=== PATIENT | female | born 1945 | race Caucasian/White ===

== ENCOUNTER → 2016-04-30 | Outpatient (CLI) | payer MEDICARE, BC ==
[~2016-04-30] MED LIST: AMANTADINE100 MG PO; AMOXICILLIN 8751 TAB PO; BUDEPRION XL300 MG PO; CARBIDOPA & LEV1 TA1 PO; CEPHALEXIN250 M1 PO; CEPHALEXIN500 M1 PO; CETAPHIL1 CRE; CITRACAL + D 251 TAB; FISH OIL CONCEN1 SG2 PO; FLAXSEED OIL1 CAP; FUROCOT20 MG PO; GENTAMICIN TOPI15 GM TP; ICAPS AREDS1 TAB; LASIX 20MG TABL20 MG PO; LEVADOPA; LEVOTHYROXIN0.075 MG PO; LIDO35.4 TOP; MACROBID 1100 MG/CAP PO; MIRAPEX 0.125MG PO; MIRAPEX1.5 MG PO; NEURONTIN100 MG/CAP PO; NEURONTIN300 MG/CAP PO; NORCO 325 MG-7.1 TAB PO; PERCOCET 5/321 UDTAB PO; PREDNISONE20 MG PO; PROVIGIL; PROVIGIL200 MG PO; RYTARY1 CE2 PO; SINEMET 25/101 UDTAB PO; SYMMETREL100 M1 PO; SYNTHROID0.075 MG/T PO; SYSTANE 0.3-0.1 EACH OP; THERATEARS 0.60.6 ML; TOPICORT CREAM15 GM; ULTRACET TABL1 UDTAB PO; WELLBUTRIN XL300 M1 PO; WELLBUTRIN XL300 MG PO; [UNRECOGNIZED DRUG - CODE] TOP; [UNRECOGNIZED DRUG - OTHER]; [UNRECOGNIZED DRUG - OTHER]; prestiq
== END ==
LOC: MC.RAD 13:20
DX: Z12.31 Encounter for screening mammogram for malignant neoplasm of breast (principal)

== ENCOUNTER 2016-05-21 13:21 | Emergency (ER) | payer MEDICARE, BC ==
[~2016-05-21] VITALS: Ht 152.4 cm; Wt 63.6 kg
[~2016-05-21 13:21] MED LIST changes: -AMOXICILLIN 8751 TAB PO; -GENTAMICIN TOPI15 GM TP; -LIDO35.4 TOP; -NEURONTIN300 MG/CAP PO; -NORCO 325 MG-7.1 TAB PO; -WELLBUTRIN XL300 M1 PO
[2016-05-21 13:25] VITALS: BP 147/74; PULSE 64; TEMP 98
[2016-05-21] MEDS ORDERED: RYTARY1 CE2 PO (14:05)
[2016-05-21] MEDS ORDERED: LASIX 20MG TABL20 MG PO (14:06)
[2016-05-21] MEDS ORDERED: MIRAPEX1.5 MG PO (14:06)
[2016-05-21] MEDS ORDERED: ULTRACET TABL1 UDTAB PO (14:08)
[2016-05-21] MEDS ORDERED: SYMMETREL100 M1 PO (14:09)
[2016-05-21] MEDS ORDERED: WELLBUTRIN XL300 M1 PO (14:09)
[2016-05-21] MEDS ORDERED: SYNTHROID0.075 MG/T PO (14:10)
== END 2016-05-21 14:51 | disposition home or self-care (01) ==
LOC: COL.ER 13:21
DX: S51.811A Laceration without foreign body of right forearm, initial encounter (principal); W22.03XA Walked into furniture, initial encounter; Y92.009 Unspecified place in unspecified non-institutional (private) residence as the place of occurrence of the external cause; G20 Parkinson's disease

== ENCOUNTER 2016-05-24 11:25 | Emergency (ER) | payer MEDICARE, BC ==
[~2016-05-24] VITALS: Ht 152.4 cm; Wt 63.2 kg
[~2016-05-24 11:25] MED LIST changes: +WELLBUTRIN XL300 M1 PO
[2016-05-24 11:33] VITALS: BP 135/63; PULSE 65; TEMP 98.1
[2016-05-24] MEDS ORDERED: CEPHALEXIN500 M1 PO (11:52)
== END 2016-05-24 12:02 | disposition home or self-care (01) ==
LOC: COL.ER 11:25
DX: S51.811D Laceration without foreign body of right forearm, subsequent encounter (principal); X58.XXXD Exposure to other specified factors, subsequent encounter

== ENCOUNTER 2016-07-28 12:05 | Emergency (ER) | payer MEDICARE, BC ==
[~2016-07-28] VITALS: Ht 152.4 cm; Wt 63.6 kg
[2016-07-28 12:07] VITALS: BP 165/55; PULSE 69; TEMP 97.4
[2016-07-28] MEDS ORDERED: CEPHALEXIN500 M1 PO ×2 (13:12)
[2016-07-28 13:26] LABS: BASO % 0.8 % (0.0-2.0); EOS # 0.6 (0.0-0.7); EOS % 10.5 % (0-4.0); GRAN % 57.2 % (42.2-75.2); HEMATOCRIT 36.1 % (37.0-47.0); HEMOGLOBIN 11.8 g/dl (12.5-16.0); LYMPH # 1.2 (1.2-3.4); LYMPH % 22.4 % (20.0-51.0); MEAN CELL VOLUME 92 fl (80.0-100.0); MEAN CORPUSCULAR HEMOGLOBIN 30 pg (27.0-31.0); MEAN CORPUSCULAR HGB CONC 33 g/dl (33.0-37.0); MEAN PLATELET VOLUME 9.1 fl (7.4-10.4); MONO # 0.5 (0.1-0.6); MONO % 8.7 % (1.7-9.3); PLATELET COUNT 299 K/mm3 (130-400); RED BLOOD COUNT 3.93 M/mm3 (4.10-5.30); REDCELL DISTRIBUTION WIDTH-CV 13.1 % (11.5-14.5); WHITE BLOOD COUNT 5.3 K/mm3 (4.8-10.8)
[2016-07-28 13:42] LABS: ADJUSTED CALCIUM 9.5 mg/dL (8.4-10.2); ALBUMIN 4.6 gm/dL (3.5-5.0); BILIRUBIN,TOTAL 0.8 mg/dL (0.0-1.0); C-REACTIVE PROTEIN 0.6 mg/dL (0.0-0.9); POTASSIUM 4.5 mmol/L (3.4-5.0); TOTAL PROTEIN 8.1 gm/dL (6.4-8.2)
== END 2016-07-28 13:32 | disposition home or self-care (01) ==
LOC: COL.ER 12:05
PROVIDERS: Physician Assistant
DX: S91.002A Unspecified open wound, left ankle, initial encounter (principal); S81.802A Unspecified open wound, left lower leg, initial encounter; V18.4XXA Pedal cycle driver injured in noncollision transport accident in traffic accident, initial encounter; Y92.009 Unspecified place in unspecified non-institutional (private) residence as the place of occurrence of the external cause; G20 Parkinson's disease; I87.2 Venous insufficiency (chronic) (peripheral)

== ENCOUNTER 2016-11-07 08:16 | Emergency (ER) | payer MEDICARE, BC ==
[~2016-11-07] VITALS: Ht 152.4 cm; Wt 63.6 kg
[2016-11-07 08:18] VITALS: BP 134/64; PULSE 64; TEMP 98.6
[2016-11-07] MEDS ORDERED: NEURONTIN300 MG/CAP PO (08:33)
[2016-11-07] MEDS ORDERED: GENTAMICIN TOPI15 GM TP (08:34)
[2016-11-07] MEDS ORDERED: LIDO35.4 TOP (08:34)
[2016-11-07] MEDS ORDERED: AMOXICILLIN 8751 TAB PO (08:43)
[2016-11-07] MEDS ORDERED: NORCO 325 MG-7.1 TAB PO ×2 (08:44→09:08)
== END 2016-11-07 09:22 | disposition home or self-care (01) ==
LOC: COL.ER 08:16
DX: L97.329 Non-pressure chronic ulcer of left ankle with unspecified severity (principal); G20 Parkinson's disease

== ENCOUNTER → 2016-12-28 | Outpatient (CLI) | payer MEDICARE, BC ==
[~2016-12-28] MED LIST changes: +AMOXICILLIN 8751 TAB PO; +GENTAMICIN TOPI15 GM TP; +LIDO35.4 TOP; +NEURONTIN300 MG/CAP PO; +NORCO 325 MG-7.1 TAB PO
== END ==
LOC: ZCOL.LAB 14:51
DX: L97.329 Non-pressure chronic ulcer of left ankle with unspecified severity (principal)

== ENCOUNTER → 2016-12-28 | Outpatient (CLI) | payer MEDICARE, BC | LOC: WCC 09:15 | DX: L97.821 Non-pressure chronic ulcer of other part of left lower leg limited to breakdown of skin (principal) | CPT/HCPCS: G0463 ==

== ENCOUNTER → 2017-01-04 | Outpatient (CLI) | payer MEDICARE, BC ==
[~2017-01-04] MED LIST changes: +ADVIL200 MG PO; +CALCIUM 600-D 61 TAB PO; +IRON TABLETS325 MG PO; +OCUVITE1 TA1 PO; +OMEGA-31 SGL PO; +PHARMASSURE ZIN50 MG PO; +VANCOCIN HCL1 GM IV; +VITAMIN C500 MG PO
== END ==
LOC: WCC 08:25
DX: I87.2 Venous insufficiency (chronic) (peripheral) (principal); M81.0 Age-related osteoporosis without current pathological fracture; L97.829 Non-pressure chronic ulcer of other part of left lower leg with unspecified severity
CPT/HCPCS: 21064; A6021

== ENCOUNTER → 2017-01-11 | Outpatient (CLI) | payer MEDICARE, BC | LOC: WCC 09:46 | DX: L97.829 Non-pressure chronic ulcer of other part of left lower leg with unspecified severity (principal); I87.2 Venous insufficiency (chronic) (peripheral) | CPT/HCPCS: G0463 ==

== ENCOUNTER → 2017-01-18 | Outpatient (CLI) | payer MEDICARE, BC | LOC: WCC 11:48 | DX: L97.829 Non-pressure chronic ulcer of other part of left lower leg with unspecified severity (principal); I87.2 Venous insufficiency (chronic) (peripheral) | CPT/HCPCS: G0463 ==

== ENCOUNTER → 2017-01-25 | Outpatient (CLI) | payer MEDICARE, BC | LOC: WCC 13:06 | DX: L97.829 Non-pressure chronic ulcer of other part of left lower leg with unspecified severity (principal); I87.2 Venous insufficiency (chronic) (peripheral) | CPT/HCPCS: G0463 ==

== ENCOUNTER → 2017-01-28 | Outpatient (CLI) | payer MEDICARE, BC | LOC: WCC 09:24 | DX: L97.829 Non-pressure chronic ulcer of other part of left lower leg with unspecified severity (principal); M79.672 Pain in left foot; G20 Parkinson's disease; E66.9 Obesity, unspecified | CPT/HCPCS: 27513; A6456; G0463 ==

== ENCOUNTER → 2017-02-03 | Outpatient (CLI) | payer MEDICARE, BC | LOC: WCC 14:26 | DX: L97.829 Non-pressure chronic ulcer of other part of left lower leg with unspecified severity (principal) | CPT/HCPCS: 27513; A6456 ==

== ENCOUNTER → 2017-02-05 | Outpatient (CLI) | payer MEDICARE, BC | LOC: ZCOL.LAB 15:39 | DX: B95.2 Enterococcus as the cause of diseases classified elsewhere (principal); L97.222 Non-pressure chronic ulcer of left calf with fat layer exposed ==

== ENCOUNTER 2017-02-09 10:00 | Outpatient (RCR) | payer MEDICARE, BC ==
[2017-01-08 11:39] VITALS: BP 149/63; PULSE 60; TEMP 97.5
[2017-01-09 08:40] VITALS: BP 134/46; PULSE 67; TEMP 97.7
[2017-01-10 07:39] VITALS: BP 137/55; PULSE 59; TEMP 98.1
[2017-01-11 09:59] VITALS: BP 145/84; PULSE 65; TEMP 98.4
[2017-01-12 08:01] VITALS: BP 148/60; PULSE 59; TEMP 98.4
[2017-01-13 07:49] VITALS: BP 146/59; PULSE 60; TEMP 98.3
[2017-01-14 07:41] VITALS: BP 159/57; PULSE 62; TEMP 97.5
[2017-01-15 08:00] VITALS: BP 126/53; PULSE 66; TEMP 97.8
[2017-01-16 07:25] VITALS: BP 147/83; PULSE 70; TEMP 98
[2017-01-16 07:55] LABS: BASO % 0.6 % (0.0-2.0); EOS # 0.2 (0.0-0.7); EOS % 3.3 % (0-4.0); GRAN # 4.3 (1.4-6.5); GRAN % 68.5 % (42.2-75.2); LYMPH # 1.2 (1.2-3.4); LYMPH % 18.6 % (20.0-51.0); MEAN CELL VOLUME 96 fl (80.0-100.0); MEAN CORPUSCULAR HGB CONC 33 g/dl (33.0-37.0); MEAN PLATELET VOLUME 9.3 fl (7.4-10.4); MONO # 0.5 (0.1-0.6); MONO % 8.4 % (1.7-9.3); PLATELET COUNT 303 K/mm3 (130-400); WHITE BLOOD COUNT 6.3 K/mm3 (4.8-10.8)
[2017-01-16 08:10] LABS: ADJUSTED CALCIUM 9.7 mg/dL (8.4-10.2); ALANINE AMINOTRANSFERASE 14 U/L (9-52); ALBUMIN 3.8 gm/dL (3.5-5.0); ALKALINE PHOSPHATASE 102 U/L (50-136); ANION GAP 8 mmol/L (7-16); BILIRUBIN,TOTAL 0.5 mg/dL (0.0-1.0); BLOOD UREA NITROGEN 29 mg/dL (7-17); CALCIUM 9.5 mg/dL (8.4-10.2); CARBON DIOXIDE 26 mmol/L (22-30); CHLORIDE 108 mmol/L (98-107); CREATININE, serum 0.83 mg/dL (0.52-1.25); GLUCOSE 93 mg/dL (74-106); POTASSIUM 4.3 mmol/L (3.4-5.0); SODIUM 142 mmol/L (137-145); TOTAL PROTEIN 7.1 gm/dL (6.4-8.2)
[2017-01-16 08:11] LABS: C-REACTIVE PROTEIN < 0.5 mg/dL (0.0-0.9); HEMATOCRIT 28.9 % (37.0-47.0); HEMOGLOBIN 9.4 g/dl (12.5-16.0); MEAN CORPUSCULAR HEMOGLOBIN 31 pg (27.0-31.0)
[2017-01-16 08:59] LABS: ERYTHROCYTE SEDIMENTATION RATE 61 mm/hr (0-30)
[2017-01-17 07:30] VITALS: BP 150/59; PULSE 64; TEMP 97.7
[2017-01-18 07:56] VITALS: BP 142/61; PULSE 66; TEMP 97.4
[2017-01-19 07:34] VITALS: BP 149/60; PULSE 64; TEMP 97.8
[2017-01-20 07:58] VITALS: BP 139/55; PULSE 64; TEMP 98.1
[2017-01-21 08:14] VITALS: BP 143/48; PULSE 63; TEMP 98.2
[2017-01-22 08:03] VITALS: BP 121/50; PULSE 69; TEMP 98
[2017-01-23 07:57] VITALS: BP 137/57; PULSE 64; TEMP 97.5
[2017-01-24 07:26] VITALS: BP 151/64; PULSE 70; TEMP 97.5
[2017-01-25 07:54] VITALS: BP 136/56; PULSE 62; TEMP 98.2
[2017-01-25 08:16] LABS: BASO % 0.7 % (0.0-2.0); EOS # 0.2 (0.0-0.7); EOS % 4.8 % (0-4.0); LYMPH # 0.7 (1.2-3.4); LYMPH % 16.1 % (20.0-51.0); MEAN CELL VOLUME 98 fl (80.0-100.0); MEAN CORPUSCULAR HGB CONC 32 g/dl (33.0-37.0); MEAN PLATELET VOLUME 9.1 fl (7.4-10.4); MONO # 0.4 (0.1-0.6); MONO % 8.7 % (1.7-9.3); PLATELET COUNT 264 K/mm3 (130-400); RED BLOOD COUNT 2.77 M/mm3 (4.10-5.30); WHITE BLOOD COUNT 4.4 K/mm3 (4.8-10.8)
[2017-01-25 08:17] LABS: HEMATOCRIT 27.2 % (37.0-47.0); HEMOGLOBIN 8.8 g/dl (12.5-16.0); MEAN CORPUSCULAR HEMOGLOBIN 32 pg (27.0-31.0)
[2017-01-25 08:33] LABS: ADJUSTED CALCIUM 8.9 mg/dL (8.4-10.2); ALANINE AMINOTRANSFERASE 16 U/L (9-52); ALBUMIN 3.3 gm/dL (3.5-5.0); ALKALINE PHOSPHATASE 109 U/L (50-136); ANION GAP 8 mmol/L (7-16); BILIRUBIN,TOTAL 0.4 mg/dL (0.0-1.0); BLOOD UREA NITROGEN 40 mg/dL (7-17); CALCIUM 8.3 mg/dL (8.4-10.2); CARBON DIOXIDE 21 mmol/L (22-30); CHLORIDE 113 mmol/L (98-107); CREATININE, serum 0.84 mg/dL (0.52-1.25); GLUCOSE 103 mg/dL (74-106); POTASSIUM 3.8 mmol/L (3.4-5.0); SODIUM 142 mmol/L (137-145); TOTAL PROTEIN 6.4 gm/dL (6.4-8.2)
[2017-01-25 08:37] LABS: C-REACTIVE PROTEIN < 0.5 mg/dL (0.0-0.9)
[2017-01-25 08:47] LABS: ERYTHROCYTE SEDIMENTATION RATE 28 mm/hr (0-30)
[2017-01-26 07:53] VITALS: BP 132/55; PULSE 61; TEMP 97.7
[2017-01-27 07:56] VITALS: BP 141/57; PULSE 64; TEMP 97.6
[2017-01-28 07:29] VITALS: BP 140/107; PULSE 66; TEMP 97.4
[2017-01-29 07:53] VITALS: BP 145/56; PULSE 58; TEMP 97.6
[2017-01-30 08:28] VITALS: BP 138/59; PULSE 57; TEMP 97.9
[2017-01-31 08:59] VITALS: BP 162/65; PULSE 59; TEMP 97.4
[2017-02-01 07:36] VITALS: BP 161/61; PULSE 52; TEMP 97.7
[2017-02-01 07:44] LABS: BASO # 0.1 (0.0-0.2); BASO % 1.1 % (0.0-2.0); EOS # 0.2 (0.0-0.7); EOS % 3.6 % (0-4.0); GRAN # 4.2 (1.4-6.5); GRAN % 65.9 % (42.2-75.2); LYMPH # 1.3 (1.2-3.4); LYMPH % 20.1 % (20.0-51.0); MEAN CELL VOLUME 96 fl (80.0-100.0); MEAN CORPUSCULAR HGB CONC 33 g/dl (33.0-37.0); MEAN PLATELET VOLUME 9.3 fl (7.4-10.4); MONO # 0.6 (0.1-0.6); MONO % 8.7 % (1.7-9.3); PLATELET COUNT 313 K/mm3 (130-400); RED BLOOD COUNT 3.21 M/mm3 (4.10-5.30); WHITE BLOOD COUNT 6.3 K/mm3 (4.8-10.8)
[2017-02-01 07:45] LABS: HEMATOCRIT 30.7 % (37.0-47.0); HEMOGLOBIN 10.1 g/dl (12.5-16.0); MEAN CORPUSCULAR HEMOGLOBIN 31 pg (27.0-31.0)
[2017-02-01 08:00] LABS: ADJUSTED CALCIUM 9.7 mg/dL (8.4-10.2); ALANINE AMINOTRANSFERASE 15 U/L (9-52); ALKALINE PHOSPHATASE 110 U/L (50-136); ANION GAP 10 mmol/L (7-16); BILIRUBIN,TOTAL 0.6 mg/dL (0.0-1.0); BLOOD UREA NITROGEN 35 mg/dL (7-17); CALCIUM 9.7 mg/dL (8.4-10.2); CARBON DIOXIDE 24 mmol/L (22-30); CHLORIDE 105 mmol/L (98-107); CREATININE, serum 0.99 mg/dL (0.52-1.25); GLUCOSE 95 mg/dL (74-106); POTASSIUM 4.8 mmol/L (3.4-5.0); SODIUM 140 mmol/L (137-145); TOTAL PROTEIN 7.5 gm/dL (6.4-8.2)
[2017-02-01 08:09] LABS: C-REACTIVE PROTEIN < 0.5 mg/dL (0.0-0.9)
[2017-02-01 08:10] LABS: ERYTHROCYTE SEDIMENTATION RATE 29 mm/hr (0-30)
[2017-02-02 07:41] VITALS: BP 144/53; PULSE 69; TEMP 98.1
[2017-02-03 07:50] VITALS: BP 124/66; PULSE 58; TEMP 97.4
[2017-02-04 07:51] VITALS: BP 136/55; PULSE 58; TEMP 97.6
[2017-02-05 07:41] VITALS: BP 108/45; PULSE 60; TEMP 97.5
[2017-02-06 07:56] VITALS: BP 155/60; PULSE 56; TEMP 97.9
[2017-02-07 07:52] VITALS: BP 158/57; PULSE 65; TEMP 97.8
[~2017-02-09] VITALS: Ht 152.4 cm; Wt 69.0 kg
[2017-02-09 10:39] VITALS: BP 163/68; PULSE 67; TEMP 97.6
== END 2017-02-09 11:30 ==
LOC: EUO 10:00
PROVIDERS: Internal Medicine Infectious Disease
DX: L97.222 Non-pressure chronic ulcer of left calf with fat layer exposed (principal); I83.222 Varicose veins of left lower extremity with both ulcer of calf and inflammation; S91.302A Unspecified open wound, left foot, initial encounter; B95.2 Enterococcus as the cause of diseases classified elsewhere
CPT/HCPCS: C1751; J1644; J3370; J7050

== ENCOUNTER 2017-03-16 12:20 | Day surgery (SDC) | payer MEDICARE, BC ==
[~2017-03-16] VITALS: Ht 152.4 cm; Wt 68.9 kg
[2017-03-16] MEDS ORDERED: SYSTANE GEL EYE10 ML OP (13:09)
[2017-03-16 13:16] VITALS: BP 132/75; PULSE 66; TEMP 98
[2017-03-16 14:22] VITALS: BP 133/65; PULSE 55; TEMP 97.4
[2017-03-16 14:45] VITALS: BP 138/73; PULSE 57
[2017-03-16 15:00] VITALS: BP 144/66; PULSE 58
[2017-03-16] MEDS ORDERED: ZANTAC 150MG T150 MG PO (15:12)
[2017-03-16] MEDS ORDERED: PRILOSEC 20MG20 MG PO (15:13)
[2017-03-16 15:15] VITALS: BP 138/62; PULSE 60
[2017-03-16] MEDS ORDERED: AMOXICILLIN 50500 MG PO (15:15)
[2017-03-16] MEDS ORDERED: BIAXIN 500MG T500 MG PO (15:17)
== END 2017-03-16 16:00 | disposition home or self-care (01) ==
LOC: SDCO 12:20
DX: K44.9 Diaphragmatic hernia without obstruction or gangrene (principal); K25.9 Gastric ulcer, unspecified as acute or chronic, without hemorrhage or perforation; K64.0 First degree hemorrhoids; D64.9 Anemia, unspecified; G20 Parkinson's disease; K92.1 Melena; F32.9 Major depressive disorder, single episode, unspecified; F41.9 Anxiety disorder, unspecified; E03.9 Hypothyroidism, unspecified; Z90.710 Acquired absence of both cervix and uterus
CPT/HCPCS: OP; J2704; J7030

== ENCOUNTER → 2017-07-20 | Outpatient (CLI) | payer MEDICARE, BC ==
[~2017-07-20] MED LIST changes: +AMOXICILLIN 50500 MG PO; +BIAXIN 500MG T500 MG PO; +MIRTAZAPINE7.5 MG PO; +PRILOSEC 20MG20 MG PO; +SEROQUEL 2525 MG/TAB PO; +SYSTANE GEL EYE10 ML OP; +TYLENOL 325MG325 MG PO; +ULTRAM 50MG TAB50 MG PO; +ZANTAC 150MG T150 MG PO
== END ==
LOC: BHSO 13:02
DX: F06.32 Mood disorder due to known physiological condition with major depressive-like episode (principal)
CPT/HCPCS: G0463